=== PATIENT | female | born 1955 | race Caucasian/White ===

== ENCOUNTER 2018-01-15 11:16 | Day surgery (SDC) | payer OTHER ==
[~2018-01-15] VITALS: Ht 175.3 cm; Wt 93.1 kg
[~2018-01-15 11:16] MED LIST: BIOTIN-D1 GM; BIOTIN5000 MCG PO; COLE625 PO; CONEST.625 PO; Crestor40 MG PO; Cvs Glucosamin1 EAC2 PO; DICLOFENAC; FENO67 PO; FISH OIL 1,2001 EAC1 PO; GLUCOSAMINE1000 MG; HYDCHL12.5 PO; Hair, Skin & N1 EACH PO; ISOMON30 PO; MINIVELLE1 EAC1 TOP; Multiple Vitam1 EACH PO; OSTERA TABLET1 EACH; SIMV10 PO; Super B Comple150 MG; Super B Comple150 MG PO; UBID10; VAGIFEM10 MCG; Voltaren100 GM TOP
== END 2018-01-15 17:23 | disposition home or self-care (01) ==
LOC: ORSCSDS 11:16
PROVIDERS: Orthopaedic Surgery
PROC: 01N50ZZ Release Median Nerve, Open Approach (ICD-10-PCS; principal; 2018-01-15 12:30)
DX: G56.01 Carpal tunnel syndrome, right upper limb (principal); E78.00 Pure hypercholesterolemia, unspecified; G47.33 Obstructive sleep apnea (adult) (pediatric); Z79.899 Other long term (current) drug therapy; Z87.891 Personal history of nicotine dependence
CPT/HCPCS: J0690; J2250; J3010; J7120

== ENCOUNTER 2018-02-26 12:11 | Day surgery (SDC) | payer OTHER ==
[~2018-02-26] VITALS: Ht 149.9 cm; Wt 94.9 kg
== END 2018-02-26 16:28 | disposition home or self-care (01) ==
LOC: ORSCSDS 12:11
PROVIDERS: Orthopaedic Surgery
PROC: 01N50ZZ Release Median Nerve, Open Approach (ICD-10-PCS; principal; 2018-02-26 13:15)
DX: G56.02 Carpal tunnel syndrome, left upper limb (principal); G47.33 Obstructive sleep apnea (adult) (pediatric); E66.01 Morbid (severe) obesity due to excess calories; Z68.41 Body mass index [BMI] 40.0-44.9, adult; Z79.899 Other long term (current) drug therapy
CPT/HCPCS: J0690; J2250; J3010; J7120

== ENCOUNTER → 2019-05-03 | Outpatient (CLI) | payer OTHER | END | disposition home or self-care (01) | LOC: LAB SHORT 12:56 → LAB EV 12:56 | DX: L08.9 Local infection of the skin and subcutaneous tissue, unspecified (principal) | CPT/HCPCS: 87070; 87077; 87186; 87205 ==

== ENCOUNTER → 2022-02-13 | Outpatient (CLI) | payer OTHER ==
[~2022-02-13] MED LIST changes: +AMLO5 PO; +DICL75ER PO; +ESTRADIOL42.5 GM VAG; -HYDCHL12.5 PO; +HYDCHL25 PO; +TIZA4 PO; +TUMERIC; +VITAMIN D325 MC3 PO
== END | disposition home or self-care (01) ==
LOC: LAB SHORT 16:47 → LAB 16:47
DX: N39.0 Urinary tract infection, site not specified (principal)
CPT/HCPCS: 87077; 87086; 87186

== ENCOUNTER → 2022-04-11 | Outpatient (CLI) | payer OTHER | END | disposition home or self-care (01) | LOC: LAB 15:44 → LAB SHORT 15:44 | DX: N39.0 Urinary tract infection, site not specified (principal) | CPT/HCPCS: 87077; 87086; 87186 ==

== ENCOUNTER → 2022-05-05 | Outpatient (CLI) | payer OTHER ==
[2022-05-05 08:55] LABS: BASOPHILS ABSOLUTE AUTO 0.05 K/mm3 (0.00-0.23); BASOPHILS PERCENT AUTO 0 % (0-2); EOSINOPHILS ABSOLUTE AUTO 0.28 K/mm3 (0.00-0.68); EOSINOPHILS PERCENT AUTO 2 % (0-6); Hematocrit 39.1 % (33.0-51.0); Hemoglobin 13.1 g/dL (11.5-16.0); IMMATURE GRAN ABSOLUTE AUTO 0.06 K/mm3 (0.00-0.10); IMMATURE GRAN PERCENT AUTO 1 % (0-1); LYMPHOCYTES PERCENT AUTO 10 % (21-46); MONOCYTES ABSOLUTE AUTO 0.64 K/mm3 (0.16-1.47); MONOCYTES PERCENT AUTO 5 % (4-13); Mean Corpuscular HGB 31.5 pg (26.0-34.0); Mean Corpuscular HGB Conc 33.5 g/dL (31.5-36.5); Mean Corpuscular Volume 94 fL (80-100); Mean Platelet Volume 10.3 fL (9.1-12.4); NEUTROPHILS ABSOLUTE AUTO 10.91 K/mm3 (1.96-9.15); NEUTROPHILS PERCENT AUTO 82 % (41-73); Platelet Count 199 K/mm3 (150-400); RDW Coefficient Variation 12.4 % (11.7-14.2); RDW Standard Deviation 42.8 fL (35.1-46.3); Red Blood Cell Count 4.16 M/mm3 (3.80-5.20); White Blood Cell Count 13.24 K/mm3 (4.00-11.30)
[2022-05-05 09:22] LABS: Bun/Creatinine Ratio 36.5 (12.0-20.0); Calcium, Blood 9.2 mg/dL (8.5-10.1); Creatinine, Blood 0.52 mg/dL (0.40-1.00); Potassium, Blood 4.3 mmol/L (3.5-5.5)
== END | disposition home or self-care (01) ==
LOC: LAB SHORT 08:48
PROVIDERS: Physician Assistant
DX: N39.0 Urinary tract infection, site not specified (principal); R10.9 Unspecified abdominal pain
CPT/HCPCS: 80048; 85025; 87077; 87086; 87186

== ENCOUNTER → 2022-05-15 | Outpatient (CLI) | payer OTHER | END | disposition home or self-care (01) | LOC: LAB 10:30 → LAB SHORT 10:30 | DX: N13.2 Hydronephrosis with renal and ureteral calculous obstruction (principal) | CPT/HCPCS: 81050 ==

== ENCOUNTER → 2022-09-24 | Outpatient (CLI) | payer OTHER | END | disposition home or self-care (01) | LOC: LAB SHORT 17:24 → LAB 17:24 | DX: N39.0 Urinary tract infection, site not specified (principal) | CPT/HCPCS: 87077; 87086; 87186 ==

== ENCOUNTER → 2022-10-26 | Outpatient (CLI) | payer OTHER | END | disposition home or self-care (01) | LOC: LAB 14:48 → LAB SHORT 14:48 | DX: R30.0 Dysuria (principal) | CPT/HCPCS: 87077; 87086; 87186 ==

== ENCOUNTER → 2023-04-30 | Outpatient (CLI) | payer OTHER | END | disposition home or self-care (01) | LOC: LAB 08:27 → LAB SHORT 08:27 | DX: N20.0 Calculus of kidney (principal) | CPT/HCPCS: 81050 ==

== ENCOUNTER → 2023-10-10 | Outpatient (CLI) | payer OTHER | END | disposition home or self-care (01) | LOC: LAB 14:00 → LAB SHORT 14:00 | DX: N20.0 Calculus of kidney (principal); N28.1 Cyst of kidney, acquired | CPT/HCPCS: 81050 ==

== ENCOUNTER → 2023-11-22 | Outpatient (CLI) | payer OTHER | END | disposition home or self-care (01) | LOC: LAB SHORT 13:41 → LAB 13:41 | DX: N39.0 Urinary tract infection, site not specified (principal) | CPT/HCPCS: 87086 ==

== ENCOUNTER 2024-03-15 16:50 | Emergency (ER) | payer OTHER ==
[~2024-03-15] VITALS: Ht 147.3 cm; Wt 89.8 kg
[2024-03-15 17:03] VITALS: BP 201/102
[2024-03-15] MEDS ORDERED: Norco 5-325 Ta1 EACH PO (17:55)
[2024-03-15] MEDS ORDERED: HYDROcodone 5-APAP 325 TAB PO ONE (17:55)
[2024-03-15] MEDS ORDERED: Ketorolac Tromethamine 30mg Vial IV ONE (17:55)
== END 2024-03-15 18:10 | disposition home or self-care (01) ==
LOC: ER 16:50
DX: S52.502A Unspecified fracture of the lower end of left radius, initial encounter for closed fracture (principal); S52.602A Unspecified fracture of lower end of left ulna, initial encounter for closed fracture; E78.00 Pure hypercholesterolemia, unspecified; W01.0XXA Fall on same level from slipping, tripping and stumbling without subsequent striking against object, initial encounter; Z87.891 Personal history of nicotine dependence; Z79.899 Other long term (current) drug therapy; Z88.8 Allergy status to other drugs, medicaments and biological substances
CPT/HCPCS: 73110; 96374; 99283-25; A9270; J1885

== ENCOUNTER → 2024-10-14 | Outpatient (CLI) | payer OTHER ==
[~2024-10-14] MED LIST changes: +Norco 5-325 Ta1 EACH PO
[2024-10-19 10:46] LABS: CALCIUM, URINE - PER 24H 382 mg/d (100-250); CALCIUM, URINE - PER VOLUME 10.9 mg/dL; CHLORIDE, URINE - PER 24H 182 mmol/d (140-250); CHLORIDE, URINE - PER VOLUME 52 mmol/L; CITRIC ACID, URINE - PER 24H 861 mg/d (320-1240); CITRIC ACID,URINE - PER VOLUME 246 mg/L; CREATININE, URINE - PER 24H 1855 mg/d (500-1400); CREATININE, URINE - PER VOLUME 53 mg/dL; HOURS COLLECTED 24 hr; MAGNESIUM, URINE - PER VOLUME 5.2 mg/dL; MAGNESIUM, URINE PER 24H 182 mg/d (12-199); OXALATE, URINE - PER 24H 38 mg/d (13-40); OXALATE, URINE - PER VOLUME 11 mg/L; PH, URINE 6.54 (5.00-7.50); PHOSPHORUS, URINE - PER 24H 1470 mg/d (400-1300); PHOSPHORUS, URINE - PER VOLUME 42 mg/dL; POTASSIUM, URINE - PER 24H 133 mmol/d (25-125); POTASSIUM, URINE - PER VOLUME 38 mmol/L; SODIUM, URINE - PER 24H 196 mmol/d (51-286); SODIUM, URINE - PER VOLUME 56 mmol/L; SULFATE, URINE - PER 24H 56 mmol/d (6-30); SULFATE, URINE - PER VOLUME 16 mmol/L; TOTAL VOLUME 3500 mL; URIC ACID, URINE - PER 24H 833 mg/d (250-750); URIC ACID, URINE - PER VOLUME 23.8 mg/dL; URINE SUPERSATURATION INTERP Abnormal; URINE SUPERSATURATION, CAHPO4 2.85; URINE SUPERSATURATION, CAOX 3.34; URINE SUPERSATURATION, UA CALC 0.12
== END ==
LOC: LAB SHORT 07:20 → LAB 07:20
PROVIDERS: Physician Assistant
DX: N13.30 Unspecified hydronephrosis (principal); N28.1 Cyst of kidney, acquired
CPT/HCPCS: 81003; 82131; 82140; 82340; 82436; 82507; 82570; 83735; 83935; 83945; 84105; 84133; 84300; 84392; 84560

== ENCOUNTER → 2024-12-09 | Outpatient (CLI) | payer OTHER ==
[2024-12-14 12:21] LABS: CALCIUM, URINE - PER 24H 276 mg/d (100-250); CALCIUM, URINE - PER VOLUME 10.6 mg/dL; CHLORIDE, URINE - PER 24H 164 mmol/d (140-250); CHLORIDE, URINE - PER VOLUME 63 mmol/L; CITRIC ACID, URINE - PER 24H 998 mg/d (320-1240); CITRIC ACID,URINE - PER VOLUME 384 mg/L; CREATININE, URINE - PER 24H 1586 mg/d (500-1400); CREATININE, URINE - PER VOLUME 61 mg/dL; HOURS COLLECTED 24 hr; MAGNESIUM, URINE - PER VOLUME 6.4 mg/dL; MAGNESIUM, URINE PER 24H 166 mg/d (12-199); OXALATE, URINE - PER 24H 81 mg/d (13-40); OXALATE, URINE - PER VOLUME 31 mg/L; PHOSPHORUS, URINE - PER 24H 1170 mg/d (400-1300); PHOSPHORUS, URINE - PER VOLUME 45 mg/dL; POTASSIUM, URINE - PER 24H 130 mmol/d (25-125); POTASSIUM, URINE - PER VOLUME 50 mmol/L; SODIUM, URINE - PER 24H 164 mmol/d (51-286); SODIUM, URINE - PER VOLUME 63 mmol/L; SULFATE, URINE - PER 24H 34 mmol/d (6-30); SULFATE, URINE - PER VOLUME 13 mmol/L; URIC ACID, URINE - PER 24H 728 mg/d (250-750); URIC ACID, URINE - PER VOLUME 28.0 mg/dL; URINE SUPERSATURATION INTERP Abnormal; URINE SUPERSATURATION, CAHPO4 2.81; URINE SUPERSATURATION, CAOX 7.91; URINE SUPERSATURATION, UA CALC 0.11
== END | disposition home or self-care (01) ==
LOC: LAB SHORT 07:25 → LAB 07:25
PROVIDERS: Physician Assistant
DX: N13.30 Unspecified hydronephrosis (principal); N28.1 Cyst of kidney, acquired
CPT/HCPCS: 81003; 81050; 82131; 82140; 82340; 82436; 82507; 82570; 83735; 83935; 83945; 84105; 84133; 84300; 84392; 84560